=== PATIENT | female | born 1980 | race American Indian/Alaskan Native ===

== ENCOUNTER 2020-12-03 10:25 | Emergency (ER) | payer OTHER ==
--- NOTE | 2020-12-03 10:33 | Event Note ---
ED Screening Note ED Screening Note: r flank and dysuria bp elevated- off her hctz mother went to hosp last night- stress no vag dc no fever no cp no sob This initial assessment/diagnostic orders/clinical plan/treatment(s) is/are subject to change based on patients health status, clinical progression and re- assessment by fellow clinical providers in the ED. Further treatment and workup at subsequent clinical providers discretion. Patient/guardian urged not to elope from the ED as their condition may be serious if not clinically assessed and managed. Initial orders include: ua ro preg recheck bp
[2020-12-03 10:34] VITALS: BP 195/110
[2020-12-03 11:59] LABS: Bilirubin,Urine NEG (Negative); Blood,Urine MOD (Negative); Color,Urine Yellow (Yellow); Mucus,Urine FEW /HPF; Urobilinogen,Urine < 2.0 mg/dL (<2.0)
[2020-12-03] MEDS ORDERED: LIDOCAINE-MPF (1%) 10 MG/1 ML VIAL 5 ML INFILTRATI ONE (12:08)
[2020-12-03] MEDS ORDERED: IBUPROFEN 800 MG TAB PO ONE (12:08)
[2020-12-03 12:10] LABS: HCG Qualitative,Urine Negative (Negative)
[2020-12-03] MEDS ORDERED: hydroCHLOROthiazide 25 MG TAB PO ONE (12:10)
--- NOTE | 2020-12-03 12:11 | Emergency Department Report ---
ED Dysuria HPI - HPI Chief Complaint: Urogenital-Female Stated Complaint: FLANK PAIN Time Seen by Provider: 12/03/20 10:32 Duration: 1 WEEK Location of Discomfort: Suprapubic Severity: Mild Symptoms: Dysuria: Yes, Frequency: Yes, Suprapubic Pain: Yes, Flank Pain: No, Fever: No, Hematuria: No, Abdominal Pain: No, Previous UTI's: Yes Other History: 40 YO AA FEMALE COMES TO ER WITH CO PAIN OVER BLADDER AREA ( SHE POINTS) WITH RADIATION TO R SIDE. FREQUENCY AND DYSURIA. WORSE WHEN SHE LAYS ON HER STOMACH. LMP 2 W AGO. NO VAG DC. NO N/V/D. NO BACK PAIN. NO FEVER OR CHILLS. AMBULATORY AND NON ILL ON EXAM. PT BP NOTED INCREASED. SHE IS OFF BP MEDS BECAUSE SHE DID NOT KNOW SHE COULD THEM FOR 4 DOLLARS. SHE IS ON HCTZ. SHE IS ALSO IN PAIN. HER MOTHER WAS TAKEN TO ER LAST NIGHT FOR HER A/C CHF- SO PT IS UPSET. NO HEADACHE, NO CHEST PAIN AND NO SOB. SHE REPORTS DRINKING A LOT OF COKE AND NOT WATER LATELY - WHICH SHE STATES IS WHEN SHE STARTED HAVING URINARY SYMPTOMS. ED Review of Systems ROS: Stated complaint: FLANK PAIN Other details as noted in HPI Comment: All other systems reviewed and negative ED Past Medical Hx - Past Medical History Hx Hypertension: Yes - Surgical History Past Surgical History?: Yes Additional Surgical History: CSECTION - Family History Family history: no significant - Social History Smoking Status: Never Smoker Substance Use Type: Alcohol - Medications Home Medications: Home Medications Medication Instructions Recorded Confirmed Last Taken Type Sulfamethoxazole/Trimethoprim 1 each PO BID #10 tablet 12/03/20 Unknown Rx [Bactrim DS TAB] hydroCHLOROthiazide [HCTZ] 25 mg PO QDAY #30 tablet 12/03/20 Unknown Rx Dysuria Exam - Exam General: Vital signs noted. No distress. Alert and acting appropriately. Exam: Yes Moist Mucous Membranes, No CVA Tenderness, No Abdominal Tenderness, No Rigidity or Guarding Exam: AMBULATORY W NO DIFFICULTY. NON TOXIC. NONILL APPEARING. NO CVA TENDERNESS. ABD SNT Labs: Lab Results 12/03/20 Range/Units 10:49 Urine Color Yellow (Yellow) Urine Turbidity Slightly-cloudy (Clear) Urine pH 7.0 (5.0-7.0) Ur Specific Supply 1.020 (1.003-1.030) Urine Protein 30 mg/dl (Negative) mg/dL Urine Glucose (UA) Neg (Negative) mg/dL Urine Ketones Neg (Negative) mg/dL Urine Blood Mod (Negative) Urine Nitrite Neg (Negative) Urine Bilirubin Neg (Negative) Urine Urobilinogen < 2.0 (<2.0) mg/dL Ur Leukocyte Esterase Lg (Negative) Urine WBC (Auto) 32.0 H (0.0-6.0) /HPF Urine RBC (Auto) 7.0 (0.0-6.0) /HPF U Epithel Cells (Auto) 6.0 (0-13.0) /HPF Urine Mucus Few /HPF ED Course Vital Signs 12/03/20 10:32 Temperature 98.1 F Pulse Rate 90 Respiratory 20 Rate Blood Pressure 195/110 O2 Sat by Pulse 100 Oximetry ED Medical Decision Making - Medical Decision Making Lab Results 12/03/20 Range/Units 10:49 Urine Color Yellow (Yellow) Urine Turbidity Slightly-cloudy (Clear) Urine pH 7.0 (5.0-7.0) Ur Specific Supply 1.020 (1.003-1.030) Urine Protein 30 mg/dl (Negative) mg/dL Urine Glucose (UA) Neg (Negative) mg/dL Urine Ketones Neg (Negative) mg/dL Urine Blood Mod (Negative) Urine Nitrite Neg (Negative) Urine Bilirubin Neg (Negative) Urine Urobilinogen < 2.0 (<2.0) mg/dL Ur Leukocyte Esterase Lg (Negative) Urine WBC (Auto) 32.0 H (0.0-6.0) /HPF Urine RBC (Auto) 7.0 (0.0-6.0) /HPF U Epithel Cells (Auto) 6.0 (0-13.0) /HPF Urine Mucus Few /HPF Vital Signs 12/03/20 10:32 Temperature 98.1 F Pulse Rate 90 Respiratory 20 Rate Blood Pressure 195/110 O2 Sat by Pulse 100 Oximetry preg neg no cva tenderness no abd pain no fever co frequency and dysuria no vag dc htn- no cp or sob pt is off her hctz neuro intact educated on taking bp med daily - and on rx program at [facility] to obtain it pt verbalizes understanding of dietary modification for her htn. she verbalizes understanding medicated with rocephin 1 gm IM dc home with rx understands she needs to see pcp p meds to be sure this goes away ambulatory, non toxic and non ill appearing u/a culture is pending. dc home with dc poc including rx, follow up, diet, and activity. Pt verbalizes understanding of dc plan of care. BP on dc per provider 170/90- sp HCTZ-- pt will continue to monitor and take her RX. Good Rx card given to the pt on dc. - Differential Diagnosis ro preg/uti Critical care attestation.: If time is entered above; I have spent that time in minutes in the direct care of this critically ill patient, excluding procedure time. ED Disposition Clinical Impression: Hypertension, Nonadherence to medical treatment, UTI (urinary tract infection) Disposition: DC-01 TO HOME OR SELFCARE Is pt being admited?: No Does the pt Need Aspirin: No Condition: Stable Instructions: Urinary Tract Infection, Adult, Managing Your Hypertension, Hypertension (ED) Additional Instructions: LOW FAT LOW SALT DIET WE DISCUSSED NO COKE DRINK A LOT OF WATER URINATE AFTER SEX MEDS ORDERED TODAY MOTRIN OR TYLENOL OVER THE COUNTER CAN BE USED FOR PAIN OVER THE COUNT AZO MAY ALSO HELP WITH YOUR URINARY SYMPTOMS FOLLOW UP WITH PCP FOR RECHECK REFERRAL BELOW Prescriptions: Sulfamethoxazole/Trimethoprim [Bactrim DS TAB] 1 each PO BID #10 tablet hydroCHLOROthiazide [HCTZ] 25 mg PO QDAY #30 tablet Referrals: VAIBHAV LOUIS MD [Staff Physician] - 3-5 Days Forms: Work/School Release Form(ED) Time of Disposition: 12:09
== END 2020-12-03 12:42 | disposition home or self-care (01) ==
LOC: ED 10:25
DX: N39.0 Urinary tract infection, site not specified (principal); I10 Essential (primary) hypertension; Z91.19 Patient's noncompliance with other medical treatment and regimen; Z98.890 Other specified postprocedural states; Z79.899 Other long term (current) drug therapy
CPT/HCPCS: 81001; 81025; 87086; 96372; 99284; J0696

== ENCOUNTER 2021-03-16 13:54 | Emergency (ER) | payer OTHER ==
[2021-03-16] MEDS ORDERED: ACETAMINOPHEN 500 MG TAB PO STA (14:30)
[2021-03-16] MEDS ORDERED: IBUPROFEN 800 MG TAB PO STA (14:30)
--- NOTE | 2021-03-16 14:31 | Event Note ---
ED Screening Note Date of service: 03/16/21 Time: 14:30 ED Screening Note: Patient complains of urinary frequency and bilateral mid/lower back pain x5 days Chest pain x1 day Denies shortness of breath No history of kidney stones per patient + Left CVA tenderness This initial assessment/diagnostic orders/clinical plan/treatment(s) is/are subject to change based on patients health status, clinical progression and re- assessment by fellow clinical providers in the ED. Further treatment and workup at subsequent clinical providers discretion. Patient/guardian urged not to elope from the ED as their condition may be serious if not clinically assessed and managed. Initial orders include: Labs EKG Chest x-ray Tylenol ibuprofen
[2021-03-16 15:28] LABS: Basophils % (Auto) 0.2 % (0.0-1.8); Eosinophils % (Auto) 0.3 % (0.0-4.3); Hematocrit 35.4 % (30.3-42.9); Hemoglobin 11.8 gm/dl (10.1-14.3); Lymphocytes % (Auto) 26.1 % (13.4-35.0); Mean Corpuscular HGB Conc 33 % (30-34); Mean Corpuscular Volume 97 fl (79-97); Monocytes # (Auto) 0.5 K/mm3 (0.0-0.8); Monocytes % (Auto) 6.1 % (0.0-7.3); Platelet Count 146 K/mm3 (140-440); Red Blood Count 3.66 M/mm3 (3.65-5.03); Red Cell Distribution Width 13.9 % (13.2-15.2)
[2021-03-16 15:40] LABS: Bilirubin,Urine NEG (Negative); Blood,Urine NEG (Negative); Color,Urine Yellow (Yellow); Mucus,Urine FEW /HPF; Protein,Urine <15 mg/dL mg/dL (Negative); Urobilinogen,Urine < 2.0 mg/dL (<2.0)
[2021-03-16 15:45] LABS: Alanine Aminotransferase 8 units/L (7-56); Albumin 4.4 g/dL (3.9-5); Blood Urea Nitrogen 15 mg/dL (7-17); Calcium 9.4 mg/dL (8.4-10.2); Hemolysis Index 3
[2021-03-16 15:54] LABS: BUN/Creatinine Ratio 21
--- NOTE | 2021-03-16 16:42 | XRay Report ---
CHEST 2 VIEWS INDICATION / CLINICAL INFORMATION: chest pain. COMPARISON: None available. FINDINGS: SUPPORT DEVICES: None. HEART / MEDIASTINUM: No significant abnormality. LUNGS / PLEURA: No significant pulmonary or pleural abnormality. No pneumothorax. ADDITIONAL FINDINGS: No significant additional findings. IMPRESSION: No acute cardiopulmonary abnormality. Signer Name: Trent Yoon MD Signed: 03/16/2021 4:38 PM Workstation Name: [id number]
--- NOTE | 2021-03-16 17:43 | Emergency Department Report ---
ED Back Pain/Injury HPI - General Chief Complaint: Chest Pain Stated Complaint: BACK PAIN, CHEST PAIN, FREQUENT URINATION Time Seen by Provider: 03/16/21 17:26 Source: patient Limitations: No Limitations - History of Present Illness Initial Comments: 41-year-old female with a past medical history of hypertension but no other significant past history presents to the ER today with complaints of lower back pain. Patient states that her back pain started about 1 week ago. She states it was initially in the lower lumbar area but has since migrated up into her flank areas bilaterally but worse on the left and today she noticed that she was having an achy pain underneath her left breast but it was pain radiating from her left flank into her left breast and she noticed it more when she lays flat on her back. She reports associated mild intermittent lower abdominal pain. Sh e denies any abdominal pain today. She reports associated urinary frequency urinary odor and urinary urgency but denies any dysuria or hematuria. She denies any nausea or vomiting or diarrhea. She denies any fever or chills. She denies any URI symptoms, shortness of breath, lower extremity swelling or calf pain. MD Complaint: back pain -: Gradual, week(s) (1) - Related Data Previous Rx's Medication Instructions Recorded Last Taken Type Sulfamethoxazole/Trimethoprim 1 each PO BID #10 tablet 12/03/20 Unknown Rx [Bactrim DS TAB] hydroCHLOROthiazide [HCTZ] 25 mg PO QDAY #30 tablet 12/03/20 Unknown Rx Ibuprofen [Motrin] 800 mg PO Q8HR PRN #30 tablet 03/16/21 Unknown Rx cephALEXin [Keflex] 500 mg PO Q6HR #40 capsule 03/16/21 Unknown Rx Allergies Allergy/AdvReac Type Severity Reaction Status Date / Time No Known Allergies Allergy Unverified 12/03/20 10:31 ED Review of Systems ROS: Stated complaint: BACK PAIN, CHEST PAIN, FREQUENT URINATION Other details as noted in HPI Comment: All other systems reviewed and negative Constitutional: denies: chills, fever Eyes: denies: eye pain, eye discharge, vision change ENT: denies: ear pain, throat pain, epistaxis, congestion Respiratory: denies: cough, shortness of breath, SOB with exertion, SOB at rest, wheezing Cardiovascular: chest pain. denies: palpitations, dyspnea on exertion, orthopnea, edema, syncope, paroxysmal nocturnal dyspnea Gastrointestinal: abdominal pain. denies: nausea, vomiting, diarrhea, constipation, hematemesis, hematochezia Genitourinary: urgency, frequency. denies: dysuria, hematuria, discharge, abnormal menses, dyspareunia Musculoskeletal: back pain. denies: joint swelling, arthralgia Skin: denies: rash, lesions, change in color, change in hair/nails, pruritus Neurological: denies: headache, weakness, numbness, paresthesias, confusion, abnormal gait, vertigo Psychiatric: denies: anxiety, depression, auditory hallucinations, visual hallucinations, homicidal thoughts, suicidal thoughts Hematological/Lymphatic: denies: easy bleeding, easy bruising, swollen glands ED Past Medical Hx - Past Medical History Previous Medical History?: Yes Hx Hypertension: Yes - Surgical History Past Surgical History?: Yes Additional Surgical History: CSECTION - Social History Smoking Status: Never Smoker Substance Use Type: Alcohol - Medications Home Medications: Home Medications Medication Instructions Recorded Confirmed Last Taken Type Sulfamethoxazole/Trimethoprim 1 each PO BID #10 tablet 12/03/20 Unknown Rx [Bactrim DS TAB] hydroCHLOROthiazide [HCTZ] 25 mg PO QDAY #30 tablet 12/03/20 Unknown Rx Ibuprofen [Motrin] 800 mg PO Q8HR PRN #30 tablet 03/16/21 Unknown Rx cephALEXin [Keflex] 500 mg PO Q6HR #40 capsule 03/16/21 Unknown Rx ED Physical Exam - General Limitations: No Limitations General appearance: alert, in no apparent distress - Head Head exam: Present: atraumatic, normocephalic, normal inspection - Eye Eye exam: Present: normal appearance, PERRL, EOMI Pupils: Present: normal accommodation - ENT ENT exam: Present: normal exam, mucous membranes moist - Neck Neck exam: Present: normal inspection, full ROM. Absent: meningismus - Respiratory Respiratory exam: Present: normal lung sounds bilaterally, chest wall tenderness (TTP left chest wall underneath left breast reproducing pain ). Absent: respiratory distress, wheezes, rales, rhonchi, stridor - Cardiovascular Cardiovascular Exam: Present: regular rate, normal rhythm, normal heart sounds - GI/Abdominal GI/Abdominal exam: Absent: soft, distended, tenderness, guarding - Extremities Exam Extremities exam: Present: normal inspection, full ROM. Absent: pedal edema, calf tenderness - Back Exam Back exam: Present: normal inspection, full ROM, CVA tenderness (L) (Mild ) - Neurological Exam Neurological exam: Present: alert, oriented X3, CN II-XII intact, normal gait - Psychiatric Psychiatric exam: Present: normal affect, normal mood - Skin Skin exam: Present: intact ED Course Vital Signs 03/16/21 03/16/21 14:26 17:45 Temperature 98.0 F 98.4 F Pulse Rate 84 83 Respiratory 18 18 Rate Blood Pressure 190/97 163/91 O2 Sat by Pulse 100 98 Oximetry ED Medical Decision Making - Lab Data Result diagrams: 03/16/21 14:38 03/16/21 14:38 - EKG Data EKG shows normal: sinus rhythm Rate: normal (81) - EKG Data Interpretation: normal EKG 03/16/21 17:57 1740 - repeat EKG show no change compared to first EKG - Radiology Data Radiology results: report reviewed - Medical Decision Making Pt presented to ED with mainly low back pain/flank pain mainly left side and today she had pain radiating into left chest underneath her breast. Pt has been in ED for about 3.5 before I saw her. She states she was given tylenol and Motrin on arrival and states that she has been feeling better. She is not toxic and not ill-appearing. She is well-hydrated . She has pain on palpation to the left chest. Soft nontender abdomen. Mild left CVA tenderness.neurologically intact with a normal gait. Labs reviewed -- CBC/CMP unremarkable. Trop x 2 negative. EKG x 2 show no change between the 2 and no ischemic changes, STEMI or significant dysrhythmia. CXR show nothing acute. UA + UTI, urine culture pending. Her history, exam, diagnostic testing and current condition do not suggest that this patient is having acute myocardial infarction, significant arrhythmia, unstable angina (Heart score 1), esophageal perforation, pulmonary embolism , aortic dissection, pneumothorax, severe pneumonia, severe pyelonephritis, acute spinal epidural abscess, acute epidural bleed, cauda equina syndrome, abdominal/thoracic aortic aneurysm, aortic dissection or other acute process requiring further testing, treatment or consultation in the emergency department at this time. Discussed lab results/imaging results with patient. Discussed suspected dx and treatment plan with patient. She expressed understanding of instructions and agree with plan. Pt stable at time of d/c. Critical care attestation.: If time is entered above; I have spent that time in minutes in the direct care of this critically ill patient, excluding procedure time. ED Disposition Clinical Impression: UTI (urinary tract infection), Atypical chest pain, Costochondritis, acute Disposition: DC-01 TO HOME OR SELFCARE Is pt being admited?: No Does the pt Need Aspirin: No Condition: Stable Instructions: Costochondritis, [id number], Nonspecific Chest Pain, Adult, Urinary Tract Infection, Adult Additional Instructions: Recommend that he take the antibiotics as prescribed. Take the ibuprofen as prescribed. I recommend that you drink lots of water. Follow-up closely with primary care doctor listed on your discharge instructions. Return to the ER if your symptoms worsens or changes in any way. Prescriptions: cephALEXin [Keflex] 500 mg PO Q6HR #40 capsule Ibuprofen [Motrin] 800 mg PO Q8HR PRN #30 tablet PRN Reason: Pain Referrals: VAIBHAV LOUIS MD [Staff Physician] - 3-5 Days Forms: Work/School Release Form(ED) Time of Disposition: 17:53
[2021-03-16 18:23] VITALS: BP 124/73
--- NOTE | 2021-03-19 19:09 | Electrocardiograph Report ---
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
--- NOTE | 2021-03-19 19:12 | Electrocardiograph Report ---
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
== END 2021-03-16 18:24 | disposition home or self-care (01) ==
LOC: ED 13:54
DX: N39.0 Urinary tract infection, site not specified (principal); M94.0 Chondrocostal junction syndrome [Tietze]; I10 Essential (primary) hypertension; Z98.890 Other specified postprocedural states; Z72.89 Other problems related to lifestyle; Z79.899 Other long term (current) drug therapy
CPT/HCPCS: 36415; 71046; 80053; 81001; 83690; 84484; 84703; 85025; 87086; 93005; 99284